=== PATIENT | male | born 1985 | race Caucasian/White ===

== ENCOUNTER 2018-06-29 11:32 | Emergency (ER) | payer OTHER, BC ==
[2018-06-29] MEDS: HYDROCODONE/APAP (5/325) TAB PO (12:44)
[2018-06-29] MEDS: ONDANSETRON (ODT) 4 MG TAB ODT (12:44)
== END 2018-06-29 13:32 | disposition left against medical advice (07) ==
LOC: FTE 11:32
DX: M25.511 Pain in right shoulder (principal); M79.674 Pain in right toe(s); R10.9 Unspecified abdominal pain; F17.210 Nicotine dependence, cigarettes, uncomplicated
CPT/HCPCS: 99283